=== PATIENT | male | born 1960 | race Caucasian/White ===

== ENCOUNTER 2019-12-28 09:20 | Outpatient (CLI) | payer OTHER, SELFPAY ==
--- NOTE | ~2019-12-28 | XR_ITS ---
XR abdomen/kub 1V 12/28/2019 09:34 Indication: Left ureteral stone Procedure: KUB Comparison: 12/19/2019 Findings: No significant change to position the 13 mm calcification at the L4-5 level. Bowel pattern is nonobstructive. There are multiple pelvic phleboliths. There are cholecystectomy clips. Mild lumba r spondylosis. Impression: 1: Possible 13 mm left mid ureteral stone at the L5 level. Consider correlation with CT. Reviewed, dictated and finalized at location A. 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 Consider correlation with CT.
== END 2019-12-28 09:21 | disposition home or self-care (01) ==
LOC: ANHIMG 09:20
PROVIDERS: PCP Internal Medicine; Visit Provider Nurse Practitioner Adult Health
DX: N20.1 Calculus of ureter (principal)
CPT/HCPCS: 74018

== ENCOUNTER 2020-01-01 14:30 | Outpatient (CLI) | payer OTHER, SELFPAY ==
[2020-01-01 15:02] LABS: Prothrombin Time 12.4 Seconds (11.1-14.7)
[2020-01-01 15:03] LABS: Partial Thromboplastin Time 27.5 SECONDS (22.3-36.8)
== END 2020-01-01 14:31 | disposition home or self-care (01) ==
LOC: ANHSURGERY 14:32
PROVIDERS: PCP Internal Medicine; Visit Provider Urology
DX: N20.0 Calculus of kidney (principal)
CPT/HCPCS: 36415; 85610; 85730; 87086

== ENCOUNTER 2020-01-10 01:30 | Day surgery (SDC) | payer OTHER, SELFPAY ==
[2019-12-31 13:58] VITALS: BMI 34.2
[2020-01-10] VITALS (7 sets, daily range): BP systolic 112–136; BP diastolic 61–86; PULSE 61–79; RESP 11–21; TEMP 36.8–37.2; O2SAT 94–99
--- NOTE | ~2020-01-10 | XR_ITS ---
EXAMINATION: XR abdomen/kub 1V DATE: 01/10/2020 10:02 INDICATION: Left ureteral stone. TECHNIQUE: A supine view of the abdomen on 3 radiographs was obtained. COMPARISON: Abdomen radiographs 12/28/2019, 12/19/2019 FINDINGS: There are no dilated loops of bowel. Surgical clips in the right upper quadrant are likely from cholecystectomy. There are phleboliths in the pelvis. There is a 6 x 8 mm stone in distal left u reter overlying the sacrum. IMPRESSION: 1. 6 x 8 mm stone in distal left ureter overlying the sacrum. Reviewed, dictated and finalized at location A. 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
[2020-01-10] MEDS: LACTATED RINGERS 1,000 ML 30 ML IV CONT ×2 (10:46→13:31)
--- NOTE | 2020-01-10 11:37 | P.PNAN_ITS ---
Anes - Initial Pre Proc Eval Procedure: Operation Date: 01/10/20 12:00 Proposed Procedures p Left Ureteral Extracorporeal Shock Wave Lithotripsy, Possible Cystoscopy, Possible Ureteroscopy, Left Stone Extraction, Possible Left Retrograde Pyelogram, Possible Left Stent Placement - Manuel Cerna MD s Possible Holmium Laser - Manuel Cerna MD Date/Time: 01/10/20 11:37 Surgeon: Manuel Cerna MD Pre Op Diagnosis: Left Ureteral Kidney Stone Patient Data Age: 59 Gender: M Height: 5 ft 11 in Weight: 111.13 kg Last Vital Signs Temp 37.2 C 01/10/20 10:45 Pulse 79 01/10/20 10:45 Resp 14 01/10/20 10:45 BP 114/66 01/10/20 10:45 Pulse Ox 99 01/10/20 10:45 Allergies Allergy/AdvReac Type Severity Reaction Status Date / Time No Known Allergies Allergy Unverified 01/10/20 10:11 Home Medications Medication Instructions Recorded Confirmed Type levothyroxine 125 mcg PO DAILY 12/31/19 01/10/20 History Patient hx anesthesia problems: none Family hx anesthesia problems: none [facility] Past Medical History Medical History (Updated 01/10/20 @ 11:37 by Lee Tavares MD) Hypothyroidism Obesity YULI (obstructive sleep apnea) Renal stones Anes - Eval Final PreProcedure Day of Procedure 01/10/20 11:37 Patient weight: obese Heart: regular rate and rhythm Lungs: clear to auscultation Airway: Mallampati scale class II Neurological: alert and oriented Last oral intake: >/= 8 hours ASA classification: III Emergent: no Anesthetic plan: proceed Anesthesia type and monitoring: general and standard monitoring Informed Consent: The patient's anesthetic plan and its attendant risks and benefits were discussed with the patient/family/POA. Questions were solicited and answers provided to the satisfaction of the patient/family/POA.
--- NOTE | 2020-01-10 11:58 | WPDHPUPDATE1 ---
History and Physical Update Update Date/Time: 01/10/20 11:58 History and Physical has been reviewed, including an updated exam of the patient. There are NO changes in the patient's condition. Risks, benefits, and alternatives have been discussed and questions answered. Patient agrees to proceed with procedure.
[2020-01-10] MEDS: ceFAZolin 2 GM/D5W 50 ML 2 GM/50 ML BAG IVPB (12:03)
--- NOTE | 2020-01-10 12:20 | P.OP_ITS ---
Procedure Note - Detailed Date of procedure: 01/10/20 Pre-op diagnosis: Left Ureteral Kidney Stone Post-op diagnosis: same Procedure performed: Left ESWL Description of procedure: The patient was brought to the operative suite where she was placed in the supine position on the Dornier lithotripsy table. His 8- 9mm left ureteral stone was easily visualized just below the sacrum so we opted for ESWL as opposed to endoscopic extration. The focal point of the lithotripter was on this stone and a total of 3000 shocks were delivered at a power setting of 7. There appeared to be good fragmentation of the stone. The patient tolerated the procedure well and was taken to the recovery room in good condition. Anesthesia: GLMA Surgeon: Manuel Cerna MD Estimated blood loss (mL): 0 Drains: No Packing: No Pathology: none sent Complications: No immediate complications Condition: stable Disposition: PACU
--- NOTE | 2020-01-10 13:19 | SUR.PHASEI ---
1315: Report given to MARLIN Stephen.
== END 2020-01-10 14:02 | disposition home or self-care (01) ==
PROVIDERS: PCP Internal Medicine; Visit Provider Urology
PROC: (CPT 50590; principal; 2020-01-10 12:00)
DX: N20.1 Calculus of ureter (principal); E03.9 Hypothyroidism, unspecified; G47.33 Obstructive sleep apnea (adult) (pediatric); E66.9 Obesity, unspecified; Z68.34 Body mass index [BMI] 34.0-34.9, adult
CPT/HCPCS: 50590; 74018; J0131; J0690; J1100; J2250; J2405; J2704; J3010; J7120

== ENCOUNTER 2020-01-31 07:59 | Outpatient (CLI) | payer OTHER, SELFPAY ==
--- NOTE | ~2020-01-31 | XR_ITS ---
XR abdomen/kub 1V 01/31/2020 08:14 Indication: Previous lithotripsy on the left. Evaluate stone status. Procedure: KUB Comparison: 01/10/2020 Findings: Interval migration of distal left ureteral stone now at the expected location of the UVJ. T here are pelvic calcifications, most likely phleboliths. There is a cholecystectomy clip. No acute os seous abnormality. There are degenerative changes of the hips. Nonobstructive bowel gas pattern. Impression: 1: Probable left UVJ stone measuring 6 mm with interval migration since prior study. Reviewed, dictated and finalized at location B. 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
== END 2020-01-31 08:00 | disposition home or self-care (01) ==
LOC: ANHIMG 08:03
PROVIDERS: PCP Internal Medicine; Visit Provider Nurse Practitioner Adult Health
DX: N20.1 Calculus of ureter (principal)
CPT/HCPCS: 74018

== ENCOUNTER 2020-04-29 07:03 | Outpatient (CLI) | payer OTHER, SELFPAY ==
--- NOTE | ~2020-04-29 | XR_ITS ---
XR abdomen/kub 1V DATE: 04/29/2020 07:20 INDICATION: Left ureteral stone follow-up TECHNIQUE: AP projection, 2 views COMPARISON: 01/31/2020 KUB FINDINGS: A calcification overlying the left ureterovesical junction area noted on 01/31/2020 is no [place] jimmie evident. Prostate calcification and bilateral calcified pelvic phleboliths are again noted. Surgical clips overlie the right upper quadrant, consistent with cholecystectomy. Social intact. No visceromegaly is evident. No evidence of bowel obstruction. There is a prominent am ount of fecal material in the right colon. IMPRESSION: Interval resolution of left ureterovesical junction area calcified calculus since 0 Status post cholecystectomy Reviewed, dictated and finalized at Location A. Reviewed, dictated and finalized at location A. IMPRESSION: Interval resolution of left ureterovesical junction area calcified calculus since 01/31/2020 Status post cholecystectomy
== END 2020-04-29 07:04 | disposition home or self-care (01) ==
LOC: ANHIMG 07:07
PROVIDERS: PCP Internal Medicine; Visit Provider Nurse Practitioner Adult Health
DX: N20.1 Calculus of ureter (principal); Z90.49 Acquired absence of other specified parts of digestive tract
CPT/HCPCS: 74018

== ENCOUNTER → 2021-06-11 14:55 | Outpatient (CLI) | payer OTHER, SELFPAY ==
--- NOTE | ~2021-06-11 | XR_ITS ---
XR knee LT 3V DATE: 06/11/2021 15:07 INDICATION: Left knee pain TECHNIQUE: [place], standing AP and lateral views COMPARISON: None FINDINGS: Mild denise-articular spurring at all 3 compartments, consistent with osteoarthritis. No radiopaque intra-articular loose body or chondrocalcinosis. No fracture or dislocation or joint effusion. No periosteal reaction or bone destruction. IMPRESSION: Mild three compartment osteoarthritis Reviewed, dictated and finalized at location B.
== END ==
PROVIDERS: PCP Internal Medicine; Visit Provider Internal Medicine
DX: M17.12 Unilateral primary osteoarthritis, left knee (principal)
CPT/HCPCS: 73562

== ENCOUNTER 2025-07-21 10:10 | Emergency (ER) | payer MEDICARE, SELFPAY ==
[2025-07-21 10:17] VITALS: BP 135/84; PULSE 82; RESP 16; TEMP 36.9; O2SAT 97
--- NOTE | 2025-07-21 10:49 | ED_ITS ---
HPI - Skin/Abscess/Foreign Bdy General Chief complaint: Wound/Laceration Stated complaint: Wasp Sting Time Seen by Provider: 07/21/25 10:49 Source: patient, RN notes reviewed and old records reviewed Mode of arrival: ambulatory Limitations: no limitations History of Present Illness HPI narrative: 65-year-old male presents to the [facility] after being stung on Monday, 2 days ago by a wasp. States that he was trying to spray the wasp nest when 1 stung him. Has been taking Zyrtec, hydrocortisone cream. Onset (ago): day(s) (2) Treatments prior to arrival: other (OTC meds) Related Data Allergies Allergy/AdvReac Type Severity Reaction Status Date / Time No Known Allergies Allergy Verified 07/21/25 10:19 Review of Systems Review of Systems: All systems reviewed & are unremarkable except as noted in HPI and below Constitutional: Constitutional: Reports no additional constitutional complaints ENT: Reports system reviewed and no additional complaints, except as documented Cardiovascular: Cardiovascular: Reports no additional cardiovascular complaints, Denies chest pain and Denies dyspnea Respiratory: Respiratory: Reports no additional respiratory complaints, Denies chest congestion, Denies cough and Denies dyspnea Musculoskeletal: Musculoskeletal: Reports no additional musculoskeletal complaints Integumentary/Breasts: Skin/Breast: Reports as per HPI and Reports other (Skin swelling, wasp sting center dorsal right hand) [facility] Past Medical History Medical History Renal stones Obesity Hypothyroidism YULI (obstructive sleep apnea) Surgical History Surgical History H/O shoulder surgery Right 2007 H/O elbow surgery Left 2007 H/O laparoscopy 2000 Family History Family History Father Leukemia Mother Thyroid disorder Social History Social History Smoking status: Never smoker Alcohol intake: current Substance use: never Substance use type: does not use Do You Feel Safe in your Home?: Yes Lack of Transportation: No Lack of Food: Never True Current Housing: I Have Housing Concerned About Future Housing: No Difficulty Paying Gas/Electric Bills: No Difficulty Paying for Meds: No Currently Unemployed: No Education: Bachelor's Degree Difficulty w/ Childcare or Family Care: No Comments At the time of my signature, I reviewed and agree with the nursing past medical, surgical, social, and family history. There is no relevant family history pertinent to the patient complaint. Exam Const: General: cooperative, healthy appearing, comfortable, no acute distress, well developed, alert and well nourished Nutritional Appearance: well nourished Orientation/consciousness: patient oriented x3 Limitations: no limitations HENMT: Head: normal to inspection Mouth: Yes Normal oral and palatal mucosa present, Yes lip normal, Yes tongue normal and Yes moist mucous membranes Eyes: General: appearance normal, both eyes and all related structures Alignment and Position: alignment normal Neck: Neck: normal visual inspection, full ROM, no lymphadenopathy and no meningeal signs Chest: Chest palpation & inspection: normal inspection of the chest Resp: Effort & Inspection: normal respiratory effort and able to speak in co mplete sentences Auscultation: clear to auscultation bilaterally, no crackles, no rales, no rhonchi and no wheezes Cardio: Rate: regular rate Skin: General skin exam: normal color and no rashes or lesions noted Other: Swelling to the dorsal aspect right hand. Reports itching. No significant erythema. No fluctuance. No stinger noted to the wound. Neuro: General: patient oriented x3, gait normal, moves all extremities and no meningeal signs Cognition (Neuro): normal cognition Speech: normal speech Gait exam (Neuro): Normal gait present Extrem: General: normal to inspection, full ROM, capillary refill normal and normal gait Psych: Appearance: grossly normal and well kempt Mental Status: mental status grossly normal Speech and movement: Normal speech and movement present and Clear speech present Affect: normal affect Attitude: cooperative Course Course Level of Care: Express Care Visit Vital Signs Vital signs: Vital Signs Temperature 98.5 F 07/21/25 10:17 Pulse Rate 82 07/21/25 10:17 Respiratory Rate 16 07/21/25 10:17 Blood Pressure 135/84 07/21/25 10:17 Pulse Oximetry 97 07/21/25 10:17 Oxygen Delivery Room Air 07/21/25 10:17 Temperature 98.5 F 07/21/25 10:17 Pulse Rate 82 07/21/25 10:17 Respiratory Rate 16 07/21/25 10:17 Blood Pressure 135/84 07/21/25 10:17 Pulse Oximetry 97 07/21/25 10:17 Oxygen Delivery Room Air 07/21/25 10:17 Reviewed MDM - Skin/Abscess/Foreign Bdy MDM Narrative Medical decision making narrative: Patient presents with concerns of being stung 2 days ago by a wasp in the right hand. Still having swelling. Has taken [id number] products. Full range of motion, capillary refill under 2 seconds. Patient is appropriate for outpatient treatment with close follow-up Discharge instructions reviewed with patient, as well as provided in writing per nursing staff. The instructions also include specific and strict return/GO TO THE ER as well as f/u information. All questions have been answered, and the patient deny any further questions with discharge and discharge plan. Some parts of this dictation were generated by voice recognition software and may contain typographical and/or grammatical inaccuracies. Differential Diagnosis Differential diagnosis: Likely abscess of skin or subcutaneous tissue, urticaria, cellulitis, eczema, insect bites and contact dermatitis Critical Care Time Critical Care Time Critical Care Time: No Discharge Plan Discharge Clinical Impression: Accidental insect sting Patient Disposition: Home Condition: Stable Instructions: Insect Bite or Sting (ED) Additional Instructions: The most important part of your care is follow up with Primary care provider. Take Benadryl 25 mg every 8 hours for itching Take Zyrtec every day Take Pepcid 20mg daily for 7 days Take the steroids starting today and take every morning. Avoid hot showers, Take cool showers. Hot showers will make rashes worse Apply cool compresses every 2-3 hours for 15 minutes Go to the ER for new or worsening symptoms such as shortness of breath. Patient Language: Martiniquais Prescriptions: New prednisone 50 mg tablet 50 mg PO DAILY Qty: 5 0RF No Action levothyroxine 125 mcg tablet 125 mcg PO DAILY Qty: 90 3RF Follow-up/Referrals: Lilliam Bridges NP [Primary Care Provider, Internal Medicine] - 2 Weeks Time of Disposition: 10:55
== END 2025-07-21 11:03 | disposition home or self-care (01) ==
PROVIDERS: Emergency Provider Nurse Practitioner; PCP Nurse Practitioner
DX: T63.461A Toxic effect of venom of wasps, accidental (unintentional), initial encounter (principal); E03.9 Hypothyroidism, unspecified; E66.9 Obesity, unspecified; Z68.37 Body mass index [BMI] 37.0-37.9, adult
CPT/HCPCS: 99213; G0463